=== PATIENT | female | born 1985 | race Hispanic/Latino ===

== ENCOUNTER 2024-04-08 08:41 | Outpatient (CLI) | payer OTHER | END 2024-04-08 08:42 | disposition home or self-care (01) | LOC: CSHMAMMO 08:41 | PROVIDERS: ATTEND Nurse Practitioner Women's Health | DX: Z12.31 Encounter for screening mammogram for malignant neoplasm of breast (principal); N64.89 Other specified disorders of breast | CPT/HCPCS: 77063; 77067 ==

== ENCOUNTER 2024-04-21 13:07 | Outpatient (CLI) | payer OTHER | END 2024-04-21 13:08 | disposition home or self-care (01) | LOC: CSHMAMMO 13:07 | PROVIDERS: ATTEND Nurse Practitioner Women's Health | DX: N64.89 Other specified disorders of breast (principal) | CPT/HCPCS: G0279 ==